=== PATIENT | male | born 1980 | race Caucasian/White ===

== ENCOUNTER → 2018-01-20 | Outpatient (CLI) | payer BC ==
--- NOTE | 2018-01-20 18:20 | CT ---
EXAMINATION TYPE: CT sinus w con DATE OF EXAM: 01/20/2018 COMPARISON: NONE HISTORY: Hypertrophy of nasal turbinates. Right side of nose appears sunken in. 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 Episodes of loss of peripheral vision on right side. CT DLP: 777.1 mGycm Automated exposure control for dose reduction was used. CONTRAST: CT scan of the facial bones is performed with IV Contrast, patient injected with 100 mL of Isovue 300 . TECHNIQUE: CT scan of the sinuses is performed without contrast, axial images are obtained, coronal r eformatted images are also reviewed. FINDINGS: There is bilateral mucosal thickening in the maxillary sinuses. There is similar change in the ethmoid sinus there is minimal mucosal thickening on the right side of the sphenoid sinus. There is minimal mucosal thickening in the frontal sinus. There is impaction at the ostiomeatal complex vic aterally. I see no focal bone destruction. Orbital margins are intact. There is no evidence of orbita l mass. The maxilla is intact. Nasal bone appears intact. Nasal turbinates are within normal limits. IMPRESSION: There is pansinusitis with predominant involvement of the maxillary and ethmoid sinuses. No focal bone destruction. No pathologic enhancement.
== END | disposition home or self-care (01) ==
LOC: RADCTMAIN 17:25
PROVIDERS: ATTEND Family Medicine
DX: J32.4 Chronic pansinusitis (principal)
CPT/HCPCS: 70487; Q9967